=== PATIENT | female | born 1955 | race Caucasian/White ===

== ENCOUNTER 2017-08-31 11:20 | Emergency (ER) | payer MEDICARE, OTHER ==
[2017-08-31 11:27] VITALS: BP 127/71; PULSE 81; TEMP 98; BMI 29.2
[2017-08-31] MEDS ORDERED: DIPHTH,PERTUSS(ACELL),TET 0.5 ML DISP.SYRIN IM ONE (12:51)
--- NOTE | 2017-08-31 12:51 | PDOC ---
History of Present Illness - General Chief Complaint: Laceration Stated Complaint: LT HAND LACERATION Time Seen by Provider: 08/31/17 11:49 - History of Present Illness Initial Comments: 08/31/17 13:00 Patient is a 62-year-old female, HIV positive, who presents to the emergency department today after slicing her left fourth finger on a piece of glass. Patient states she was washing dishes when she felt a piece of glass from a broken cup cut her finger. Hemostasis was controlled prior to arrival to the emergency room. Pt. states she is able to bend the finger. Patient denies numbness and tingling to the finger, weakness of the finger. Patient does not remember the date of her last tetanus shot. Past History - Travel Traveled outside of the country in the last 30 days: No Close contact w/someone who was outside of country & ill: No - Past Medical History Allergies/Adverse Reactions: Allergies Allergy/AdvReac Type Severity Reaction Status Date / Time No Known Allergies Allergy Verified 08/31/17 11:27 Home Medications: Ambulatory Orders Emtricitab/Rilpiviri/Tenof Ala [Odefsey Tablet] 1 each PO DAILY #30 tablet 07/02 Lorazepam [Ativan] 0.5 mg PO BID #60 tablet MDD 2 08/05/17 Mirtazapine 1 tablet PO HS #30 tablet 08/05/17 Omeprazole 20 mg PO DAILY #30 capsule. 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) HTN: No Hypercholesterolemia: No Liver Disease: No Psychiatric Problems: Yes (As above said every thing started after her .) Seizures: No Thyroid Disease: No (Rt Renal radical nephrectomy 07/20/14) - Surgical History Abdominal Surgery: No Appendectomy: No Cardiac Surgery: No Cholecystectomy: No Lung Surgery: No Neurologic Surgery: No Orthopedic Surgery: No - Suicide/Smoking/Psychosocial Hx Smoking History: Never smoked Have you smoked in the past 12 months: No Cigars Per Day: 0 Information on smoking cessation initiated: No Hx Alcohol Use: No Drug/Substance Use Hx: No Substance Use Type: None Hx Substance Use Treatment: No (denies any) Review of Systems - Review of Systems Able to Perform ROS?: Yes Is the patient limited Thai proficient: No Constitutional: No: Chills, Fever, Weakness Musculoskeletal: Yes: Other (L 4th finger pain, able to bend the finger) Integumentary: Yes: Other (Lacertion to L 4th finger) Neurological: No: Numbness, Tingling, Weakness, Dizziness *Physical Exam - Vital Signs Last Vital Signs Temp Pulse Resp BP Pulse Ox 98 F 81 19 127/71 100 08/31/17 11:25 08/31/17 11:25 08/31/17 11:25 08/31/17 11:25 08/31/17 11:25 - Physical Exam General Appearance: Yes: Nourished, Appropriately Dressed. No: Apparent Distress Extremity: positive: Normal Capillary Refill, Normal Inspection, Normal Range of Motion (Pt. able to flex and extend L 4th finger.) Integumentary: positive: Normal Color, Dry, Warm, Other (4 cm laceration to the dorsal 4th L finger. Flexor tendon visualized and intact. ) Neurologic: positive: wardrobe attendant II-XII NML intact, Fully Oriented, Alert, Normal Mood/ Affect, Normal Response, Motor Strength 5/5 Procedures - Laceration/Wound Repair Left Proximal 4th digit Wound Length: 2.6 to 5.0 cm Wound Explored: clean, no foreign body present Wound's Depth, Shape: into muscle, flap Irrigated w/ Saline: Yes Betadine Prep: Yes Anesthesia: 1% Lidocaine Amount of Anesthetic (ccs): 7 Wound Repaired With: Sutures Suture Size/Type: 5:0 Number of Sutures: 12 (simple interrupted) Layer Closure: No Splint Applied: Yes (finger splint) Medical Decision Making - Medical Decision Making 08/31/17 13:07 Patient is a 62-year-old female past medical history of HIV who presents emergency department today for repair of a 4 cm laceration to the dorsal left hand. The procedure stent placed under sterile conditions. The wound was thoroughly explored and cleansed with both normal saline and Betadine. Tendon is exposed however it is intact and patient is able to flex and extend the finger. 1% plain lidocaine 7 mL used to anesthetize the area. 12 simple interrupted sutures with 5-0 nylon used. Patient tolerated procedure well. Patient able to extend and flex finger after stitches. Splint placed. Patient instructed to return in 7-10 days for stitch removal. Patient given return precautions and instructions to watch for infection. Her tetanus shot was updated today. *DC/Admit/Observation/Transfer Diagnosis at time of Disposition: HIV (human immunodeficiency virus infection), Laceration - Discharge Dispostion Disposition: HOME Condition at time of disposition: Good Admit: No - Referrals Referrals: Cassandra Apodaca MD [Primary Care Provider] - - Patient Instructions Printed Discharge Instructions: DI for Laceration Repair Additional Instructions: The cut on your left fourth finger was repaired with stitches today. You may use Tylenol or Motrin as needed for pain. Please follow the dosing instructions on the bottle. Please keep the hand dry, do not soak in water. Wear a glove over the hand if you are washing dishes or showering. You may wash your hand once a day with gentle soap and water and pat dry. Your tetanus shot was updated today. Please return in 10-14 days to have your stitches removed. A splint was applied for comfort. Return to the emergency department if you have worsening pain in the finger, signs of infection including redness, increased swelling, fevers, or any changes in your symptoms. El mariposa en el cuarto dedo calvin fue reparado con puntos hoy. Puede usar Tylenol o Motrin segn sea necesario para el dolor. Por favor, siga las instrucciones de dosificacin en la botella. Por favor, mantenga la mano seca, no sumerja en agua. Use un guante sobre la mano si lava los platos o se ducha. Puede lavarse la mano jose vez al da con agua y jabn suave y secarse. Banuelos vacuna antitetnica se actualiz hoy. Por favor regrese en 10-14 lou para que le quiten los puntos de sutura. Se aplic jose frula para mayor comodidad. Regrese al departamento de emergencias si tiene un empeoramiento del dolor en el dedo, signos de infeccin, que incluyen enrojecimiento, aumento de la hinchaz n, fiebre o cualquier cambio en betsey sntomas. Print Language: MAURITANIAN - Post Discharge Activity
== END 2017-08-31 13:16 | disposition home or self-care (01) ==
LOC: JERFT 11:20
PROC: 3E0234Z Introduction of Serum, Toxoid and Vaccine into Muscle, Percutaneous Approach (ICD-10-PCS; principal; 2017-08-31)
PROC: 0JQK0ZZ Repair Left Hand Subcutaneous Tissue and Fascia, Open Approach (ICD-10-PCS; 2017-08-31)
PROC: 2W3KX1Z Immobilization of Left Finger using Splint (ICD-10-PCS; 2017-08-31)
DX: S61.215A Laceration without foreign body of left ring finger without damage to nail, initial encounter (principal); Z21 Asymptomatic human immunodeficiency virus [HIV] infection status; Z85.528 Personal history of other malignant neoplasm of kidney; Z90.5 Acquired absence of kidney; W25.XXXA Contact with sharp glass, initial encounter; Y93.G1 Activity, food preparation and clean up; Y92.010 Kitchen of single-family (private) house as the place of occurrence of the external cause; Y99.8 Other external cause status
CPT/HCPCS: 12002-25; 29130; 90471; 90715; 99282-25

== ENCOUNTER 2017-09-15 18:11 | Emergency (ER) | payer MEDICARE, OTHER ==
--- NOTE | 2017-09-15 18:27 | PDOC ---
Rapid Medical Evaluation Time Seen by Provider: 09/15/17 18:25 Medical Evaluation: Allergies Allergy/AdvReac Type Severity Reaction Status Date / Time No Known Allergies Allergy Verified 09/15/17 18:25 09/15/17 18:26 The patient presents with a chief complaint of: suture removal to left 4th digit, no complaints I have performed a brief in-person evaluation of this patient. Pertinent physical exam findings: none I have ordered the following: none The patient will proceed to the ED for further evaluation. Discharge Disposition - Diagnosis Visit for suture removal - Referrals - Patient Instructions - Post Discharge Activity
[2017-09-15 18:28] VITALS: BP 114/77; PULSE 83; TEMP 98; BMI 32.9
--- NOTE | 2017-09-15 19:50 | PDOC ---
Suture Removal/Wound Check HPI - History of Present Illness Chief Complaint: Suture/Staple Removal(Here) Stated Complaint: STITCHES REMOVAL Time Seen by Provider: 09/15/17 18:25 History Source: Yes: Patient Exam Limitations: Yes: No Limitations Treated at: [facility] ED - Previous ED Treatment Type of procedure performed on last visit: Yes: Laceration Repair Tetanus Immunization: Yes: Up to Date Past History - Past Medical History Allergies/Adverse Reactions: Allergies Allergy/AdvReac Type Severity Reaction Status Date / Time No Known Allergies Allergy Verified 09/15/17 18:25 Home Medications: Ambulatory Orders Emtricitab/Rilpiviri/Tenof Ala [Odefsey Tablet] 1 each PO DAILY #30 tablet 07/02 Lorazepam [Ativan] 0.5 mg PO BID #60 tablet MDD 2 08/05/17 Mirtazapine 1 tablet PO HS #30 tablet 08/05/17 Omeprazole 20 mg PO DAILY #30 capsule. 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) HTN: No Hypercholesterolemia: No Liver Disease: No Psychiatric Problems: Yes (As above said every thing started after her .) Seizures: No Thyroid Disease: No (Rt Renal radical nephrectomy 07/20/14) - Surgical History Abdominal Surgery: No Appendectomy: No Cardiac Surgery: No Cholecystectomy: No Lung Surgery: No Neurologic Surgery: No Orthopedic Surgery: No - Suicide/Smoking/Psychosocial Hx Smoking History: Never smoked Have you smoked in the past 12 months: No Cigars Per Day: 0 Hx Alcohol Use: No Drug/Substance Use Hx: No Substance Use Type: None Hx Substance Use Treatment: No (denies any) Suture Removal/Wound Check PE - Physical Exam Laceration/Wound Check Symptoms: reports: None Current Severity Level: None Location of Laceration/Wound: left: Finger (10 sutures removed with poor approximation, - primarily dehisced) *Review of Systems - Review of Systems Able to Perform ROS?: Yes Constitutional: Yes: See HPI. No: Symptoms Reported Integumentary: Yes: Symptoms Reported, See HPI, Other (poor wound healing ) All Other Systems: Reviewed and Negative Medical Decision Making - Medical Decision Making 09/15/17 19:48 10 sutures removed, steristrips applied with splint to assist with secondary intention healing. Patient encouraged to avoid strenuous activity until better healing completed. *DC/Admit/Observation/Transfer Diagnosis at time of Disposition: Visit for suture removal - Discharge Dispostion Disposition: HOME Condition at time of disposition: Stable Admit: No - Referrals Referrals: Cassandra Apodaca MD [Primary Care Provider] - - Patient Instructions - Post Discharge Activity
== END 2017-09-15 19:54 | disposition home or self-care (01) ==
LOC: JERFT 18:11
DX: Z48.02 Encounter for removal of sutures (principal)
CPT/HCPCS: 99281-25

== ENCOUNTER 2021-11-24 12:27 | Emergency (ER) | payer MEDICARE, OTHER ==
[2021-11-24 12:40] VITALS: BMI 32.9
[2021-11-24] MEDS ORDERED: ACETAMINOPHEN 325 MG TABLET (FP) PO ONE (13:28)
[2021-11-24] MEDS ORDERED: ACETAMINOPHEN 325 MG TABLET (FP) ONE (13:30)
[2021-11-24 13:47] LABS: BASO % 0.6 % (0-2.0); EOS % 0.7 % (0-4.5); HEMATOCRIT 38.6 % (32.4-45.2); HEMOGLOBIN 12.9 GM/dL (10.7-15.3); LYMPH % 28.3 % (8-40); MCH 32.7 pg (25.7-33.7); MCHC 33.5 g/dl (32.0-36.0); MEAN CELL VOLUME 97.7 fl (80-96); MEAN PLT VOLUME 7.2 fl (7.5-11.1); MONO % 6.2 % (3.8-10.2); NEUT % 64.2 % (42.8-82.8); PLATELET COUNT 260 10^3/uL (134-434); RBC 3.95 M/mm3 (3.60-5.2); RDW 13.4 % (11.6-15.6); WHITE BLOOD COUNT 7.3 K/mm3 (4.0-10.0)
[2021-11-24 13:51] LABS: EPI CELLS 14 /uL (0-25.1); HYALINE CASTS 1 /uL (0-3.1); URINE APPEARANCE CLEAR; URINE BACTERIA 275 /uL (0-1359); URINE BILIRUBIN NEGATIVE (NEGATIVE); URINE COLOR YELLOW; URINE GLUCOSE (UA) NEGATIVE (NEGATIVE); URINE KETONE NEGATIVE (NEGATIVE); URINE LEUK ESTERASE 1+ (NEGATIVE); URINE NITRITE NEGATIVE (NEGATIVE); URINE PROTEIN NEGATIVE (NEGATIVE); URINE RBC 5 /uL (0-23.9); URINE UROBILINOGEN 0.2 mg/dL (0.2-1.0); URINE WBC 39 /uL (0-25.8)
[2021-11-24 14:08] LABS: ALBUMIN 3.6 g/dl (3.4-5.0); BLOOD UREA NITROGEN 12.2 mg/dL (7-18)
[2021-11-24 14:13] LABS: BILIRUBIN,TOTAL 0.4 mg/dL (0.2-1); TOT PROT 7.7 g/dl (6.4-8.2)
[2021-11-24 17:06] VITALS: BP 130/83; PULSE 79; TEMP 98.3
== END 2021-11-24 17:07 | disposition home or self-care (01) ==
LOC: JER 12:27
DX: M54.50 Low back pain, unspecified (principal); Z83.0 Family history of human immunodeficiency virus [HIV] disease
CPT/HCPCS: 36415; 74176-TC; 80053; 81003; 85025; 87086; 99284-25

== ENCOUNTER 2023-10-06 15:26 | Emergency (ER) | payer OTHER ==
[2023-10-06 15:37] VITALS: BP 117/64; PULSE 88; RESP 16; TEMP 98.5; BMI 32.9
[2023-10-06] MEDS ORDERED: ALBUTEROL SO4 2.5/IPRATROPIUM 0.5 INH SOL 3 ML VIAL.NEB. NEB ONE ×2 (16:21→16:26)
[2023-10-06] MEDS ORDERED: ACETAMINOPHEN 500 MG TABLET (FP) PO ONE (16:55)
[2023-10-06] MEDS ORDERED: ACETAMINOPHEN 500 MG TABLET (FP) ONE (17:01)
== END 2023-10-06 18:25 | disposition home or self-care (01) ==
LOC: JERFT 15:26
PROC: 3E0F7GC Introduction of Other Therapeutic Substance into Respiratory Tract, Via Natural or Artificial Opening (ICD-10-PCS; principal; 2023-10-06)
DX: R07.9 Chest pain, unspecified (principal); U07.1 COVID-19
CPT/HCPCS: 0241U-QW; 71046-TC-FY; 99284-25

== ENCOUNTER 2025-06-02 14:17 | Inpatient (IN) | payer OTHER ==
[2025-06-02 14:26] VITALS: BMI 30.2
[2025-06-02] MEDS ORDERED: ALBUTEROL SO4 2.5/IPRATROPIUM 0.5 INH SOL 3 ML VIAL.NEB. NEB ONE ×3 (15:48→20:37)
[2025-06-02] MEDS ORDERED: methylPREDNISolone NA SUCC 125 MG/2 ML VIAL ONE ×2 (15:49→15:50)
[2025-06-02] MEDS ORDERED: MAGNESIUM SULFATE IN WATER 2 GM/50 ML IVPB IVPB ONE (15:49)
[2025-06-02] MEDS: ALBUTEROL SO4 2.5/IPRATROPIUM 0.5 INH SOL 3 ML VIAL.NEB. NEB ONE ×3 (16:00→18:23)
[2025-06-02] MEDS: MAGNESIUM SULFATE IN WATER 2 GM/50 ML IVPB IVPB ONE (16:00)
[2025-06-02] MEDS: methylPREDNISolone NA SUCC 125 MG/2 ML VIAL IVPUSH ONE (16:00)
[2025-06-02 16:21] LABS: MCHC 32.2 g/dl (32.2-35.5); MEAN CELL VOLUME 104.1 fl (79.4-94.8); MEAN PLT VOLUME 9.6 fl (9.4-12.3); RDW 12.9 % (12.4-16.6)
[2025-06-02 16:25] LABS: EPI CELLS 14 /uL (0-25.1); HYALINE CASTS 0 /uL (0-3.1); URINE APPEARANCE CLEAR; URINE BACTERIA 166 /uL (0-1359); URINE BILIRUBIN NEGATIVE (NEGATIVE); URINE COLOR YELLOW; URINE GLUCOSE (UA) NEGATIVE (NEGATIVE); URINE KETONE NEGATIVE (NEGATIVE); URINE LEUK ESTERASE 1+ (NEGATIVE); URINE NITRITE NEGATIVE (NEGATIVE); URINE PROTEIN TRACE (NEGATIVE); URINE RBC 35 /uL (0-23.9); URINE UROBILINOGEN 0.2 mg/dL (0.2-1.0); URINE WBC 12 /uL (0-25.8)
[2025-06-02 16:30] LABS: COCAINE, UR NEGATIVE (NEGATIVE); PHENCYCLIDINE,URINE NEGATIVE (NEGATIVE)
[2025-06-02 16:31] LABS: METHADONE, UR NEGATIVE (NEGATIVE); OPIATES, URI NEGATIVE (NEGATIVE); URINE AMPHETAMINES NEGATIVE (NEGATIVE); URINE BARBITURATES NEGATIVE (NEGATIVE); URINE BENZODIAZEPINES NEGATIVE (NEGATIVE)
[2025-06-02 16:35] LABS: GLUCOSE,RANDOM 79.0 mg/dL (74-106); TOT PROT 7.5 g/dl (6.4-8.2)
[2025-06-02 16:36] LABS: CO2 24.0 mmol/L (21-32)
[2025-06-02 16:38] LABS: ALK PHOS 68.0 U/L (40-150)
[2025-06-02] MEDS ORDERED: ACETAMINOPHEN 325 MG TABLET (FP) ONE (16:39)
[2025-06-02 16:40] LABS: SGOT/AST 24.0 U/L (5-34); SGPT/ALT 19.0 U/L (0-55)
[2025-06-02 16:41] LABS: CREATININE 0.95 mg/dL (0.55-1.3)
[2025-06-02] MEDS: ACETAMINOPHEN 325 MG TABLET (FP) PO PRN (18:24)
[2025-06-02] MEDS ORDERED: ALBUTEROL SO4 0.083% IH SOL 2.5 MG/3 ML VIAL.NEB. NEB PRN ×2 (19:43→23:52)
[2025-06-02] MEDS ORDERED: ALBUTEROL SO4 2.5/IPRATROPIUM 0.5 INH SOL 3 ML VIAL.NEB. NEB PRN (19:45)
[2025-06-02] MEDS: ALBUTEROL SO4 2.5/IPRATROPIUM 0.5 INH SOL 3 ML VIAL.NEB. NEB SCH (20:38)
[2025-06-02] MEDS: morphine CARPU-JECT 2 MG/1 ML DISP.SYRIN IVPUSH ONE (21:57)
[2025-06-02] MEDS ORDERED: ALBUTEROL SO4 HFA INHALER IH PRN (23:52)
[2025-06-03] MEDS ORDERED: BISACODYL 5 MG TABLET.DR (FP) PO PRN (00:15)
[2025-06-03] MEDS: methylPREDNISolone NA SUCC 40 MG/1 ML VIAL IVPUSH SCH (01:07)
[2025-06-03] MEDS ORDERED: traZODone HCL 100 MG TABLET (FP) PO SCH ×2 (01:46→22:00)
[2025-06-03] MEDS: traZODone HCL 50 MG TABLET (FP) PO SCH (02:05)
[2025-06-03] MEDS: MIRTAZAPINE 30 MG TABLET PO ONE (02:05)
[2025-06-03] MEDS: PANTOPRAZOLE 20 MG TABLET PO SCH (06:46)
[2025-06-03] MEDS ORDERED: PATIENT'S OWN MEDICATION (NON-FORMULARY) (Sertraline Hcl [Sertraline Hcl] 100 MG Tablet) PO SCH (07:00)
[2025-06-03 07:58] LABS: MCHC 33.0 g/dl (32.2-35.5); MEAN CELL VOLUME 102.4 fl (79.4-94.8); MEAN PLT VOLUME 9.5 fl (9.4-12.3); RDW 12.6 % (12.4-16.6)
[2025-06-03 08:24] LABS: GLUCOSE,RANDOM 170.0 mg/dL (74-106); TOT PROT 7.4 g/dl (6.4-8.2)
[2025-06-03 08:25] LABS: CO2 22.0 mmol/L (21-32)
[2025-06-03 08:27] LABS: ALK PHOS 64.0 U/L (40-150)
[2025-06-03 08:30] LABS: CREATININE 0.85 mg/dL (0.55-1.3); SGOT/AST 22.0 U/L (5-34); SGPT/ALT 17.0 U/L (0-55)
[2025-06-03] MEDS ORDERED: PATIENT'S OWN MEDICATION (NON-FORMULARY) (Omega-3 Fatty Acids [Omega-3] 1,000 MG Capsule) PO SCH (10:00)
[2025-06-03] MEDS ORDERED: PATIENT'S OWN MEDICATION (NON-FORMULARY) (Dolutegravir Sodium/Lamivudine [Dovato 50-300 Mg PO SCH (10:00)
[2025-06-03] MEDS: SERTRALINE HCL 50 MG TABLET (FP) PO SCH (10:38)
[2025-06-03] MEDS: FAMOTIDINE 20 MG TABLET PO SCH (10:38)
[2025-06-03] MEDS: MULTIVITAMINS (DAILY MVI) TABLET (FP) PO SCH (10:38)
[2025-06-03] MEDS: ENOXAPARIN NA (PORCINE) 40 MG/0.4 ML DISP.SYRIN SQ SCH (10:38)
[2025-06-03] MEDS: OMEGA-3 ACID ETHYL ESTERS (FATTY-ACIDS) 1 GM CAPSULE (FP) PO SCH (10:38)
[2025-06-03] MEDS ORDERED: DEXTROMETHORPHAN/PROMETHAZINE 15 MG/6.25 MG/5 ML SYRUP PO PRN (11:34)
[2025-06-03] MEDS: ACETAMINOPHEN 1000 MG/100 ML BAG IVPB PRN (14:54)
[2025-06-03] MEDS: SENNOSIDES 8.6MG TABLET (FP) PO SCH (21:10)
[2025-06-03] MEDS: MAGNESIUM OXIDE 400 MG TABLET (FP) PO SCH (21:11)
[2025-06-03] MEDS: traZODone HCL 100 MG TABLET (FP) PO SCH (21:11)
[2025-06-03] MEDS: MIRTAZAPINE 30 MG TABLET PO SCH (21:11)
[2025-06-03] MEDS: ROSUVASTATIN CA 10 MG TABLET PO SCH (21:11)
[2025-06-04 08:12] VITALS: BP 121/63; PULSE 81; RESP 17; TEMP 98.2
[2025-06-04 08:19] LABS: ABSOLUTE IMMATURE GRANULOCYTES 0.06 x10^3/uL (0.0-0.031); BASOPHILS # 0.01 x10^3/uL (0.01-0.08); EOSINOPHIL % 0.0 % (0.7-5.8); EOSINOPHILS # 0.00 x10^3/uL (0.04-0.36); MCHC 32.7 g/dl (32.2-35.5); MEAN CELL VOLUME 103.6 fl (79.4-94.8); MEAN PLT VOLUME 9.5 fl (9.4-12.3); MONOCYTE # 0.11 x10^3/uL (0.24-0.86); MONOCYTE % 0.9 % (4.7-12.5); RDW 13.2 % (12.4-16.6)
[2025-06-04 08:42] LABS: GLUCOSE,RANDOM 128.0 mg/dL (74-106); TOT PROT 7.9 g/dl (6.4-8.2)
[2025-06-04 08:43] LABS: CO2 23.0 mmol/L (21-32)
[2025-06-04 08:45] LABS: ALK PHOS 67.0 U/L (40-150)
[2025-06-04 08:48] LABS: CREATININE 0.89 mg/dL (0.55-1.3); SGOT/AST 19.0 U/L (5-34); SGPT/ALT 19.0 U/L (0-55)
[2025-06-04] MEDS: CALCITRIOL 0.25 MCG CAPSULE (FP) PO SCH (09:15)
[2025-06-04] MEDS: DOLUTEGRAVIR SODIUM 50 MG TABLET (NON-FORMULARY) PO SCH (10:34)
== END 2025-06-04 11:46 | disposition home or self-care (01) | DRG 203 ==
LOC: JER 14:17 → JERBED 18:42 → J5S 20:58
PROVIDERS: ADMIT Internal Medicine
DX: J45.31 Mild persistent asthma with (acute) exacerbation (principal); M81.0 Age-related osteoporosis without current pathological fracture; F32.A Depression, unspecified; E78.5 Hyperlipidemia, unspecified; Z21 Asymptomatic human immunodeficiency virus [HIV] infection status; Z90.5 Acquired absence of kidney; E83.39 Other disorders of phosphorus metabolism
CPT/HCPCS: 36415; 71045-TC-FY; 80053; 80307; 81003; 82306; 82533; 82962; 83605; 83735; 83880; 84100; 84484; 85025; 86359; 86360; 86713; 87040; 87637-QW; 94640; 99285-25